=== PATIENT | male | born 1955 | race Caucasian/White ===

== ENCOUNTER 2019-07-06 23:22 | Emergency (ER) | payer OTHER ==
[2019-07-06] MEDS ORDERED: ORPHENADRINE CITRATE 30 MG/ML AMP IM ONE (23:32)
--- NOTE | 2019-07-06 23:37 | ED.PDOC ---
History of Present Illness - General Time Seen by Provider: 07/06/19 23:31 Source: patient Additional Information: this is a patient with history of ulcerative colitis, and recently diagnose with hypertension, patient presents with muscle spasms on his back patient drove for a long time last yesterday and did some work on the mendoza today patient stated that he has had similar episodes in the past and he usually gets a shot and muscle relaxant pills patient denies urinary symptoms, denies numbness in the saddle area and is able to walk without any difficulties - History of Present Illness Timing/Duration: other - yesterda Improving Factors: nothing Worsening Factors: nothing Associated Symptoms: denies symptoms Home Medications: Ambulatory Orders Cyclobenzaprine HCl [Flexeril] 10 mg PO Q6HR #20 tab 07/06/19 Review of Systems - Review of Systems Constitutional: States: no symptoms reported EENTM: States: no symptoms reported Respiratory: States: no symptoms reported Cardiology: States: no symptoms reported Gastrointestinal/Abdominal: States: no symptoms reported Genitourinary: States: no symptoms reported Musculoskeletal: States: no symptoms reported Skin: States: no symptoms reported Neurological: States: no symptoms reported Endocrine: States: no symptoms reported Hematologic/Lymphatic: States: no symptoms reported Physical Exam - Physical Exam General Appearance: Alert, Well Developed, Well Groomed, Well Hydrated, Well Nourished Eye Exam: bilateral normal Ears, Nose, Throat: hearing grossly normal, normal ENT inspection, normal pharynx Neck: non-tender, full range of motion, supple, normal inspection Respiratory: chest non-tender, lungs clear, normal breath sounds, no respiratory distress, no accessory muscle use Cardiovascular/Chest: normal peripheral pulses, regular rate, rhythm, no edema, no gallop, no JVD, no murmur Peripheral Pulses: radial,right: 2+, radial,left: 2+ Gastrointestinal/Abdominal: normal bowel sounds, non tender, soft, no organomegaly, no pulsatile mass Back Exam: muscle spasm Extremity: normal range of motion, non-tender, normal inspection, no pedal edema, no calf tenderness, normal capillary refill Neurologic: manager code II-XII nml as tested, no motor/sensory deficits, alert, normal mood/affect, oriented x 3 Skin Exam: normal color Progress - Progress Progress: 07/06/19 23:39 patient presents with muscle spams, no neurological deficits, able to ambulate and denies dysuria, or hematuria patient has had similar episodes in the past and he attributed this attack to driving for a long tie yesterday and working on the mendoza today will be discahrge home with susanneeril and follow up with primary md return to the [facility] if no improvement of symptoms or severe back pain or urinary changes (incontinence or retention), decrease sensation in the saddle area, fever chills or any other concerns 07/06/19 23:40 Departure - Departure Clinical Impression: Spasm Disposition: Discharge to Home or Self Care Condition: Fair Instructions: Muscle Spasms (DC) Diet: resume usual diet Prescriptions: Cyclobenzaprine HCl [Flexeril] 10 mg PO Q6HR #20 tab Home Medications: Ambulatory Orders Cyclobenzaprine HCl [Flexeril] 10 mg PO Q6HR #20 tab 07/06/19
[2019-07-07 00:18] VITALS: BP 144/97; TEMP 97.1; O2SAT 98
== END 2019-07-06 23:59 | disposition home or self-care (01) ==
LOC: ER 23:22
DX: M62.830 Muscle spasm of back (principal); I10 Essential (primary) hypertension